=== PATIENT | female | born 1965 | race Asian ===

== ENCOUNTER 2021-01-16 00:18 | Emergency (ER) | payer BC ==
[~2021-01-16] VITALS: Ht 157.5 cm; Wt 64.0 kg
[2021-01-16] MEDS ORDERED: ASPIRIN 81MG TABLET PO ONE (01:00)
[2021-01-16 01:10] VITALS: BP 123/80
[2021-01-16 01:16] LABS: HEMATOCRIT. 40.7 % (36.0-48.0); HEMOGLOBIN. 13.9 g/dL (12.0-16.0); MEAN CORPUSCULAR HEMOGLOBIN 31.7 pg (28.0-32.0); MEAN CORPUSCULAR VOLUME 92.8 fL (81.0-99.0); MEAN PLATELET VOLUME 6.7 fl (7.4-10.4); PLATELET 443 x1000/uL (130-400); RED BLOOD CELL COUNT 4.39 mill/uL (4.2-5.4)
[2021-01-16 01:18] LABS: CHLORIDE 109 mEq/L (98-107)
[2021-01-16 01:20] LABS: *AMPHETAMINES SCREEN URINE NEGATIVE (NEGATIVE); *BARBITURATES SCREEN URINE NEGATIVE (NEGATIVE); *BENZODIAZEPINES SCREEN URINE NEGATIVE (NEGATIVE)
[2021-01-16 01:21] LABS: *COCAINE SCREEN URINE NEGATIVE (NEGATIVE); CANNABINOID URINE SCREEN PRESUMTIVE POSITIVE (NEGATIVE); METHADONE URINE SCREEN NEGATIVE (NEGATIVE); OPIATES URINE SCREEN NEGATIVE (NEGATIVE); PHENCYCLIDINE URINE SCREEN NEGATIVE (NEGATIVE)
[2021-01-16 01:23] LABS: ETHANOL BLOOD < 10 mg/dL
[2021-01-16 07:45] LABS: PLATELET ESTIMATE INCREASED
== END 2021-01-16 05:12 | disposition home or self-care (01) ==
LOC: ER 00:18
DX: R07.89 Other chest pain (principal); F12.90 Cannabis use, unspecified, uncomplicated; J44.9 Chronic obstructive pulmonary disease, unspecified; Z88.2 Allergy status to sulfonamides
CPT/HCPCS: 36415; 71045; 80053; 80305; 80320; 83880; 84484; 85025; 93005; 99285; Z7610; G0480